=== PATIENT | female | born 1970 | race Caucasian/White ===

== ENCOUNTER 2017-04-19 05:33 | Inpatient (IN) | payer MEDICARE, MEDICAID ==
[2017-04-19] MEDS ORDERED: Celecoxib 200 MG Cap PO ONE (06:30)
[2017-04-19] MEDS ORDERED: Acetaminophen 500 MG Tab PO ONE (06:30)
[2017-04-19] MEDS ORDERED: Scopolamine 1.5 MG Transdermal Patch TOP SCH (06:30)
[2017-04-19] MEDS ORDERED: Gabapentin 300 MG Cap PO ONE (06:30)
[2017-04-19] MEDS ORDERED: Dextrose 5%-Lactated Ringers 1,000 ML IV SCH (06:30)
[2017-04-19] MEDS ORDERED: Propofol 200 MG/20 ML SDV ONE (06:48)
[2017-04-19] MEDS ORDERED: Dexamethasone 4 MG/ML SDV ONE (06:48)
[2017-04-19] MEDS ORDERED: Glycopyrrolate 0.2 MG/ML 5 ML MDV ONE (06:48)
[2017-04-19] MEDS ORDERED: Neostigmine Methylsulfate 1 MG/ML 5 ML Syringe ONE (06:48)
[2017-04-19] MEDS ORDERED: Succinylcholine 200 MG/10 ML MDV ONE (06:48)
[2017-04-19] MEDS ORDERED: Rocuronium 50 MG/5 ML Vial ONE (06:48)
[2017-04-19] MEDS ORDERED: Ondansetron 4 MG/2 ML SDV ONE (06:48)
[2017-04-19] MEDS ORDERED: cefOXitin 2 GM Vial ONE (06:55)
[2017-04-19] MEDS ORDERED: FLU Vacc QS 2017-18 (36mos UP)/PF 60 MCG/0.5 ML Syringe IM ONE (07:00)
[2017-04-19] MEDS ORDERED: Lidocaine 0.4%/D5W 2 GM/500 ML BAG IV SCH (08:00)
[2017-04-19] MEDS ORDERED: cefOXitin 2 GM in Premix Bag 1 BAG IV ONE (08:00)
[2017-04-19] MEDS ORDERED: Ropivacaine 48 ML, Dexamethasone 8 MG, EPINEPHrine 0.4 MG, Sodium Chloride 0.9% 29.6 ML NERVRT ONE ×4 (08:00)
[2017-04-19] MEDS ORDERED: Ketamine 500 MG/5 ML MDV IV ONE (08:00)
[2017-04-19] MEDS ORDERED: Lidocaine 2% 100 MG/5 ML Syringe IVPUSH ONE (08:00)
[2017-04-19] MEDS ORDERED: hydrOXYzine HCl 100 MG/2 ML SDV IM ONE (09:31)
[2017-04-19] MEDS ORDERED: fentaNYL 100 MCG/2 ML SDV IVPUSH ONE (09:32)
[2017-04-19] MEDS ORDERED: Labetalol 20 MG/4 ML Syringe IVPUSH PRN (11:00)
[2017-04-19] MEDS ORDERED: Metoclopramide 10 MG/2 ML SDV IVPUSH PRN (11:00)
[2017-04-19] MEDS ORDERED: diphenhydrAMINE 50 MG/ML SDV IVPUSH PRN (11:00)
[2017-04-19] MEDS ORDERED: hydrOXYzine HCl 100 MG/2 ML SDV IM PRN (11:00)
[2017-04-19] MEDS: cefOXitin 2 GM in Sodium Chloride 0.9% 50 ML IV SCH ×2 (12:53→17:41)
[2017-04-19] MEDS: Pantoprazole 40 MG Vial IVPUSH SCH (12:54)
[2017-04-19] MEDS: Gabapentin 300 MG Cap PO SCH ×2 (14:38→20:11)
[2017-04-19] MEDS: Acetaminophen 160 MG Tab,Disintegrating PO SCH ×2 (14:38→20:10)
[2017-04-19] MEDS: MVI, Adult with Vitamin K 10 ML, Thiamine 200 MG, Chromium/Copper/Mang/Selen/Zn 1 ML in... IV SCH ×4 (16:09)
[2017-04-19] MEDS: Ondansetron 4 MG/2 ML SDV IVPUSH PRN (16:09)
[2017-04-19] MEDS: Heparin Sodium 5,000 Units/ML Vial SUBCUT SCH (16:14)
[2017-04-19] MEDS: Dextrose 5%-Lactated Ringers 1,000 ML IV SCH (22:24)
[2017-04-20] MEDS: cefOXitin 2 GM in Sodium Chloride 0.9% 50 ML IV SCH (00:43)
[2017-04-20] MEDS: HYDROmorphone 1 MG/ML Syringe IVPUSH PRN ×2 (03:13→05:08)
[2017-04-20] MEDS: Acetaminophen 160 MG Tab,Disintegrating PO SCH ×4 (03:17→20:53)
[2017-04-20] MEDS: Dextrose 5%-Lactated Ringers 1,000 ML IV SCH (04:36)
[2017-04-20] MEDS: Heparin Sodium 5,000 Units/ML Vial SUBCUT SCH ×2 (05:01→17:28)
[2017-04-20] MEDS: Gabapentin 300 MG Cap PO SCH ×3 (08:28→20:56)
[2017-04-20] MEDS: Celecoxib 200 MG Cap PO SCH (08:28)
[2017-04-20] MEDS: ARIPiprazole 10 MG Tab PO SCH (08:29)
[2017-04-20] MEDS: SCOPOLAMINE PATCH CHECK TOP SCH (08:34)
[2017-04-20] MEDS ORDERED: Dextrose 5%-Lactated Ringers 1,000 ML IV SCH (09:00)
[2017-04-20] MEDS ORDERED: Amphetamine/Dextroamphetamine Salts 10 MG Cap.ER PO SCH (09:00)
[2017-04-20] MEDS ORDERED: HYDROmorphone 2 MG Tab PO PRN (09:00)
[2017-04-20] MEDS: busPIRone 5 MG Tab PO SCH ×3 (10:40→20:54)
[2017-04-20] MEDS: Pantoprazole 40 MG Vial IVPUSH SCH (12:05)
[2017-04-20] MEDS: Ondansetron 4 MG/2 ML SDV IVPUSH PRN (12:05)
--- NOTE | 2017-04-20 15:31 | PN ---
DATE OF SERVICE: 04/20/2017 The patient has been clinically stable status post sleeve gastrectomy and hiatal hernia repair yesterday. Upper GI x-ray looks good and oral intake has been satisfactory as well. We will restart her pertinent oral medications today, back down on the IV rate. She did require some IV Dilaudid for 2 doses during the night, and we will switch that to oral form as needed today. Otherwise, we will may be let her get in the shower and maximize activity and work with pulmonary toilet. She may be ready for discharge home tomorrow. Dario Rajput MD /[id number]
[2017-04-20] MEDS: MVI, Adult with Vitamin K 10 ML, Thiamine 200 MG, Chromium/Copper/Mang/Selen/Zn 1 ML in... IV SCH ×4 (17:31)
[2017-04-20] MEDS ORDERED: traZODone 50 MG Tab PO SCH (21:00)
[2017-04-21] MEDS: Acetaminophen 160 MG Tab,Disintegrating PO SCH ×2 (01:39→11:33)
[2017-04-21] MEDS: Heparin Sodium 5,000 Units/ML Vial SUBCUT SCH (05:31)
[2017-04-21] MEDS ORDERED: FLU Vacc QS 2017-18 (36mos UP)/PF 60 MCG/0.5 ML Syringe IM ONE (09:00)
[2017-04-21] MEDS ORDERED: Cyanocobalamin (Vitamin B12) 1,000 MCG/ML SDV IM ONE (09:00)
[2017-04-21] MEDS: Celecoxib 200 MG Cap PO SCH (11:32)
[2017-04-21] MEDS: ARIPiprazole 10 MG Tab PO SCH (11:33)
[2017-04-21] MEDS: busPIRone 5 MG Tab PO SCH (11:34)
[2017-04-21] MEDS: Gabapentin 300 MG Cap PO SCH (11:34)
[2017-04-21] MEDS: SCOPOLAMINE PATCH CHECK TOP SCH (11:34)
[2017-04-21] MEDS ORDERED: Magnesium Hydroxide 400 MG/5 ML Susp 30 ML Cup PO ONE (12:10)
--- NOTE | 2017-04-21 13:33 | DISCH ---
FINAL DIAGNOSES: 1. Morbid obesity. 2. Marked hepatomegaly. 3. Paraesophageal diaphragmatic hernia. ADDITIONAL DIAGNOSES: Attention deficit disorder and bipolar affective disorder. OPERATIVE PROCEDURE: Done on 04/19; laparoscopic sleeve gastrectomy along with liver biopsy and repair of paraesophageal diaphragmatic hernia with mesh. SUMMARY: This is a 47-year-old female presenting with longstanding morbid obesity and increasingly significant comorbidities. After preoperative evaluation and discussion, she wished to proceed with a laparoscopic sleeve gastrectomy. This was done on the date of admission along with a liver biopsy and repair of the paraesophageal diaphragmatic hernia with mesh. Postoperatively, she has had a smooth course, was having some epigastric discomfort as one would expect and is tolerating step-2 full liquid diet without difficulty as well as her medications. For the most part, she has been tolerating the regimen of Celebrex, gabapentin, and Tylenol for pain. She has had a little bit of breakthrough pain covered with some oral Dilaudid over the last 24 hours. The plan will be to discharge home. At this point, she will be following up with Selena Pickens at [facility] on 04/29/2017. She will be on her usual medications plus Celebrex and Tylenol and Dilaudid on a p.r.n. basis and instructed to remain on a full liquid or step-2 type diet for one month postoperatively.
--- NOTE | 2017-04-22 09:16 | CR ---
Limited upper GI The patient is status post Morgan-en-Y gastric bypass. There are left upper quadrant drains in place. T here is no extravasation of contrast. The gastric pouch empties readily into a nondilated Morgan limb. No complications are evident. Impression: 1. Status post Morgan-en-Y gastric bypass without evidence for complication.
--- NOTE | 2017-04-22 13:14 | OR ---
DATE OF PROCEDURE: 04/19/2017 PREOPERATIVE DIAGNOSIS: Morbid obesity. POSTOPERATIVE DIAGNOSES: 1. Morbid obesity. 2. Marked hepatomegaly. 3. Paraesophageal diaphragmatic hernia. OPERATIVE PROCEDURES: 1. Laparoscopic sleeve gastrectomy (22625). 2. Nick-Cut needle liver biopsy (24953). 3. Repair of paraesophageal diaphragmatic hernia with mesh (89631). ANESTHESIA: General. ASSISTANTS: Selena Pickens PA-C and OCTAVIANO Carlton3. INDICATION FOR PROCEDURE: This is a 47-year-old presenting with longstanding morbid obesity and increasingly significant comorbidities. After preoperative evaluation and discussion, she wished to proceed with a laparoscopic sleeve gastrectomy. Potential risks of the procedure including bleeding, infection, injury to underlying viscera, possible leaks from the staple line, as well as remote possibility of cardiopulmonary, septic, or hemorrhagic complications leading to were discussed, and the patient wishes to proceed. DETAILS OF PROCEDURE: The patient was taken to the operating room. After general endotracheal anesthesia was induced, she was placed in a lithotomy position and a Drummond catheter inserted, and orogastric tube was placed for anesthesia, which was subsequently removed after evacuation of the stomach. The abdomen was then prepped and draped. At 15 cm inferior and 5 cm left of xiphoid process, a transverse incision was made and peritoneal cavity entered under direct vision with an Optiview trocar inflated to 15 mmHg pressure with CO2. Following this, bilateral transversus plane blocks in the subcostal location were placed. The needle was visualized in the correct plane from the laparoscopic vantage point, and injections were unremarkable, using the standard solution. Following this, 5 additional trocars were placed across the upper and mid abdomen, and general exploration was undertaken. The patient noted to have a quite enlarged liver which was grossly fatty infiltrated. Nick-Cut needle biopsies from left lobe of the liver were obtained, and minimal bleeding from the biopsy sites was controlled with an electrocautery. As one elevated the liver, the patient was noted to have a fairly large paraesophageal diaphragmatic hernia. This contained some perigastric fat, along with the fundus of the stomach prolapsing in a plane anterior to the course of the esophagus. This was reduced and the peritoneum overlying incised and reflected downward. The esophagogastric junction and distal esophagus were then dissected away from the crura on each side, and the retrocrural window was established. The esophagus was then freed up of remaining attachments with the Kristin drain not being used for any pressure. The patient had an intraabdominal esophageal length of around 4 to 5 cm. Posterior repair of the crural defect was accomplished with 0 Ethibond sutures, reinforced with PTFE pledgets. The size of the defect was such that we felt this will be best reinforced with an absorbable mesh. A Phasix ST mesh was then cut such that it would cover the crural repair slightly over onto the crura on each side. This was positioned and fixed in position with some titanium tacking screws. At this point, attention was taken to takedown of the omentum. Beginning at the mid greater curvature, the omentum was then divided away using a harmonic scalpel. This continued up through the short gastric vessels, including the highest and posterior short gastric vessels. Some areolar tissue behind the medial fundus was then freed up such that we were able to proceed with a gastrectomy staple line without a redundant area of stomach proximally. The omentum division then continued distally down to 0.2 cm proximal to the pylorus, which had been marked with electrocautery at that point. The sleeve gastrectomy staple line was then mapped out, beginning 2 cm proximal to the pylorus and extending underneath the incisura angularis with care taken to avoid overtightening of the incisura angularis. The first 3 firings of the gastrectomy were then accomplished using the VERO black loads. Following this then, a #32 Erit[place]an tube was placed per Anesthesia. This was manipulated along the lesser curvature and pulled up snugly against the lesser curvature, after which the suction was applied. The remainder of the sleeve gastrectomy was accomplished with a series of reinforced black and purple loads and the specimen was then displaced off the side. The staple line appeared to be intact. Fibrin sealant was then placed with 8 mL being placed in the area of the upper aspect of the staple line. The omentum was then tacked up into that area with a 3-0 Vicryl stitch as well, and the remaining fibrin sealant was placed predominantly over the antral staple line and, to a lesser extent, over the midportion of the staple line. A leak test was accomplished with injection of air into the stomach, while the pyloric sphincter was being compressed, and the area irrigated with antibiotic-containing saline solution. Following this, a 10-Eritrean Rocael-Murray drain was then placed along the proximal end of the gastric staple line and into the splenic fossa from that point and the remaining trocars removed. Peritoneal cavity deflated. Incisions were closed with some 4-0 Vicryl skin stitch. Dressing was applied. The patient was taken to the recovery room in satisfactory condition. Physician kitchen assistant, Selena Pickens, played an essential role in assisting in this case, helping to position the patient, retract structures as needed, as well as suturing and cutting sutures when indicated. Her presence improved patient safety and decreased operative time. Dario Rajput MD /[id number]
== END 2017-04-21 12:15 | disposition home or self-care (01) | DRG 621 ==
LOC: JP.SDSSCHI 05:33 → JP.SDS 05:33 → EDSTATUS 07:30 → JP.2SS 09:10
PROVIDERS: ADMIT Surgery; ATTEND Surgery
PROC: 0DB64Z3 Excision of Stomach, Percutaneous Endoscopic Approach, Vertical (ICD-10-PCS; principal; 2017-04-19)
PROC: 0FB24ZX Excision of Left Lobe Liver, Percutaneous Endoscopic Approach, Diagnostic (ICD-10-PCS; 2017-04-19)
PROC: 0BUT4JZ Supplement Diaphragm with Synthetic Substitute, Percutaneous Endoscopic Approach (ICD-10-PCS; 2017-04-19)
PROC: 3E0T3BZ Introduction of Anesthetic Agent into Peripheral Nerves and Plexi, Percutaneous Approach (ICD-10-PCS; 2017-04-19)
DX: E66.01 Morbid (severe) obesity due to excess calories (principal); Z68.37 Body mass index [BMI] 37.0-37.9, adult; K76.0 Fatty (change of) liver, not elsewhere classified; R16.0 Hepatomegaly, not elsewhere classified; K44.9 Diaphragmatic hernia without obstruction or gangrene; F17.210 Nicotine dependence, cigarettes, uncomplicated; Z88.8 Allergy status to other drugs, medicaments and biological substances; F31.9 Bipolar disorder, unspecified; F41.9 Anxiety disorder, unspecified; Z23 Encounter for immunization
CPT/HCPCS: 36415; 74240; 74240-26; 82962; 83036; 86850; 86900; 86901; 88307; 88313; 88342; 90686; A9270-GY; C1781; C9113; G0008; J0171; J0330; J0694; J1100; J1170; J1644; J2001; J2405; J2704; J2710; J2795; J3010; J3410; J3411; J3420; J7030; J7042; J7050

== ENCOUNTER 2017-08-02 06:45 | Day surgery (SDC) | payer MEDICARE, MEDICAID ==
[2017-08-02] MEDS ORDERED: Propofol 200 MG/20 ML SDV ONE (07:07)
[2017-08-02] MEDS ORDERED: Midazolam 1 MG/ML 2 ML SDV ONE (07:07)
[2017-08-02] MEDS ORDERED: fentaNYL 100 MCG/2 ML SDV ONE (07:07)
[2017-08-02] MEDS ORDERED: Lactated Ringers 1,000 ML IV ONE (07:30)
[2017-08-02] MEDS ORDERED: Cyanocobalamin (Vitamin B12) 1,000 MCG/ML SDV IM ONE (07:45)
[2017-08-02] MEDS ORDERED: Glycopyrrolate 0.2 MG/ML 2 ML SDV IVPUSH ONE (08:00)
[2017-08-02] MEDS ORDERED: MVI, Adult with Vitamin K 10 ML, Thiamine 100 MG, Chromium/Copper/Mang/Selen/Zn 1 ML in... IV ONE ×4 (09:00)
--- NOTE | 2017-08-11 13:25 | OR ---
DATE OF PROCEDURE: 08/02/2017 PREOPERATIVE DIAGNOSIS: Dysphagia and epigastric pain status post sleeve gastrectomy. POSTOPERATIVE DIAGNOSES: 1. Status post sleeve gastrectomy associated with mild distal esophagitis. 2. Active antral gastritis. OPERATIVE PROCEDURE: Upper GI endoscopy with biopsies of antrum for CLOtest. ANESTHESIA: IV sedation. INDICATIONS FOR PROCEDURE: A 47-year-old status post a sleeve gastrectomy presenting with some dysphagia and epigastric pain along with some intermittent heartburn. She presently has been on omeprazole 40 mg a day. She was instructed to begin Carafate, but insurance has held up that and prior authorization is still pending. A sleeve gastrectomy was performed on 04/19/2017. The plan is to proceed with upper GI endoscopy with biopsies and/or dilation as indicated. Potential risks including bleeding and perforation were discussed, and the patient wishes to proceed. DETAILS OF PROCEDURE: The patient was taken to the operating room and placed in a left lateral decubitus position. IV sedation was administered after the upper GI endoscope was passed orally through the length of the esophagus, through the length of the stomach, treated by previous sleeve gastrectomy, from there through the pyloric channel and into the junction of the 3rd and 4th portions of the duodenum. Findings included normal hypopharynx, larynx, upper esophageal sphincter, and esophageal body. At the EG junction, there was some mild redness and edema of the mucosa. No stricturing was noted. The entire length of the sleeve gastrectomy was inspected and at no point were there any areas of significant narrowing. There was some retained bile and fairly active antral gastritis present without erosions or ulcers. The pyloric channel and visualized portions of the duodenum were unremarkable. At this point, biopsies were obtained from the antrum and sent for CLOtest for H. pylori. Minimal bleeding of the biopsy site was seen. The retained bile was then evacuated and the scope then removed and the procedure then concluded. At this point, I think we will pursue with the patient's prescription for the Carafate, and once that has begun, do that on a q.i.d. basis. If only solid pills are available per the insurance, we would like to dissolve those prior to ingestion, so as to get good coating of the esophagogastric junction. Otherwise, instructed to use Gaviscon liquid or chewable pills for the heartburn and nausea on a p.r.n. basis, and follow up with Selena Pickens will be in 2 weeks. Dario Rajput MD /[id number]
== END 2017-08-02 11:20 | disposition home or self-care (01) ==
LOC: JP.SDS 06:45
PROVIDERS: ATTEND Surgery
DX: R13.10 Dysphagia, unspecified (principal); K29.70 Gastritis, unspecified, without bleeding; E66.9 Obesity, unspecified; F31.9 Bipolar disorder, unspecified; F90.9 Attention-deficit hyperactivity disorder, unspecified type; Z88.5 Allergy status to narcotic agent; Z79.899 Other long term (current) drug therapy
CPT/HCPCS: 43239; 87081; J2250; J2704; J3010; J3411; J3420; J7120; J3490

== ENCOUNTER 2019-10-26 08:06 | Day surgery (SDC) | payer MEDICARE, MEDICAID ==
[~2019-10-26 08:06] MED LIST: Midazolam 1 MG/ML 2 ML SDV ONE; Propofol 200 MG/20 ML SDV ONE; fentaNYL 100 MCG/2 ML SDV ONE
[2019-10-26] MEDS ORDERED: Lactated Ringers 1,000 ML IV ONE (08:30)
[2019-10-26] MEDS ORDERED: Cyanocobalamin (Vitamin B12) 1,000 MCG/ML SDV IM ONE (08:30)
[2019-10-26] MEDS ORDERED: Glycopyrrolate 0.2 MG/ML 2 ML SDV IVPUSH ONE (09:15)
[2019-10-26] MEDS ORDERED: MVI, Adult with Vitamin K 10 ML, Thiamine 200 MG, Chromium/Copper/Mang/Selen/Zn 1 ML in... IV ONE ×4 (09:30)
--- NOTE | 2019-11-16 14:50 | OR ---
DATE OF PROCEDURE: 10/26/2019 SURGEON: Dario Rajput MD PREOPERATIVE DIAGNOSIS: Worsening gastroesophageal reflux disease, status post sleeve gastrectomy. POSTOPERATIVE DIAGNOSES: 1. Recurrent hiatal hernia with active gastroesophageal reflux disease, status post sleeve gastrectomy. 2. Large amount of gastric bile with diffuse bile gastritis. OPERATIVE PROCEDURE: Upper gastrointestinal endoscopy with antral biopsies for CLOtest. ANESTHESIA: IV sedation. INDICATION FOR PROCEDURE: The patient is status post a sleeve gastrectomy in April 2018, who presents now with worsening gastroesophageal reflux disease that has become refractory to medical management. The plan is to proceed with upper GI endoscopy for diagnostic purposes. Potential risks including bleeding and perforation were discussed, and the patient wishes to proceed. DETAILS OF PROCEDURE: The patient was taken to the operating room and placed in a left lateral decubitus position. IV sedation was administered, after which the upper GI endoscope was passed orally through the length of the esophagus into the remaining stomach and from there through the pyloric channel into the junction of the third and fourth portions of the duodenum. Findings included normal hypopharynx, larynx, upper esophageal sphincter, and esophageal body. At the EG junction, the patient was noted to have recurrent hiatal hernia measuring around 3 to 4 cm. This was not associated with any upward extension of the gastroesophageal junction mucosal line above the upper gastric folds. Within the remaining stomach, there was diffuse bile gastritis present and a fair bit amount of retained bile. Pyloric channel was nonstenotic and the visualized portions of the duodenum were unremarkable. At this point, biopsies were obtained from the antrum and sent for CLOtest for H pylori. Minimal bleeding from the biopsy site was seen and the procedure then concluded. As discussed with the patient preoperatively, the plan at this point will be to convert her to a Morgan-en-Y gastric bypass, which will concurrent repair of the hiatal hernia will also be undertaken. This will be scheduled for 10/29/2019. Dario Rajput MD /[id number]
== END 2019-10-26 12:15 | disposition home or self-care (01) ==
LOC: JP.SDS 08:06
PROVIDERS: ATTEND Surgery
DX: K29.70 Gastritis, unspecified, without bleeding (principal); K44.9 Diaphragmatic hernia without obstruction or gangrene; K21.9 Gastro-esophageal reflux disease without esophagitis; F31.9 Bipolar disorder, unspecified; F90.9 Attention-deficit hyperactivity disorder, unspecified type; Z98.84 Bariatric surgery status
CPT/HCPCS: 43239; 87081; J2250; J2704; J3010; J3411; J3420; J3490; J7120

== ENCOUNTER 2019-10-29 07:38 | Inpatient (IN) | payer MEDICARE, MEDICAID ==
[~2019-10-29 07:38] MED LIST changes: +Bupivacaine 0.5%/EPINEPHrine 1:200,000 50 ML MDV ONE; +Meropenem 500 MG SDV ONE; -Midazolam 1 MG/ML 2 ML SDV ONE; -Propofol 200 MG/20 ML SDV ONE; +cefOXitin 2 GM Vial ONE; -fentaNYL 100 MCG/2 ML SDV ONE
[2019-10-29] MEDS ORDERED: Scopolamine 1.5 MG Transdermal Patch TOP ONE (08:00)
[2019-10-29] MEDS ORDERED: Acetaminophen 500 MG Tab PO ONE (08:00)
[2019-10-29] MEDS ORDERED: Celecoxib 200 MG Cap PO ONE (08:00)
[2019-10-29] MEDS ORDERED: Albuterol/Ipratropium 3.0-0.5 MG/3 ML Neb Soln NEB ONE (08:36)
[2019-10-29] MEDS: Dextrose 5%-Lactated Ringers 1,000 ML IV SCH ×2 (08:47→14:04)
[2019-10-29] MEDS ORDERED: Magnesium Sulfate 2.5 GM in Sodium Chloride 0.9% 100 ML IV SCH (09:15)
[2019-10-29] MEDS ORDERED: Ketamine 50 MG in Sodium Chloride 0.9% 49.5 ML IV SCH (09:15)
[2019-10-29] MEDS ORDERED: Ketamine 500 MG/5 ML MDV IV SCH (09:15)
[2019-10-29] MEDS: cefOXitin 2 GM in Sodium Chloride 0.9% 50 ML IV ONE ×2 (09:59→14:50)
[2019-10-29] MEDS ORDERED: fentaNYL 250 MCG/5 ML SDV ONE ×2 (10:08→11:22)
[2019-10-29] MEDS ORDERED: Dexamethasone 4 MG/ML SDV ONE (10:08)
[2019-10-29] MEDS ORDERED: Glycopyrrolate 0.2 MG/ML 5 ML MDV ONE (10:08)
[2019-10-29] MEDS ORDERED: Propofol 200 MG/20 ML SDV ONE (10:08)
[2019-10-29] MEDS ORDERED: Rocuronium 50 MG/5 ML Vial ONE (10:08)
[2019-10-29] MEDS ORDERED: Succinylcholine 200 MG/10 ML MDV ONE (10:08)
[2019-10-29] MEDS ORDERED: Ondansetron 4 MG/2 ML SDV ONE (10:08)
[2019-10-29] MEDS ORDERED: Neostigmine Methylsulfate 1 MG/ML 5 ML Syringe ONE (10:08)
[2019-10-29] MEDS ORDERED: Lactated Ringers 1,000 ML ONE (10:10)
[2019-10-29] MEDS ORDERED: Labetalol 20 MG/4 ML Syringe ONE (11:55)
[2019-10-29] MEDS ORDERED: hydrOXYzine HCL 100 MG/2 ML SDV IM ONE (13:07)
[2019-10-29] MEDS ORDERED: Cyclobenzaprine 10 MG Tab PO PRN (14:27)
[2019-10-29] MEDS: Ondansetron 4 MG/2 ML SDV IVPUSH PRN ×2 (14:49→19:10)
[2019-10-29] MEDS: HYDROmorphone 0.5 MG/0.5 ML Syringe IVPUSH PRN ×2 (14:49→21:08)
[2019-10-29] MEDS ORDERED: Metoclopramide 10 MG/2 ML SDV IVPUSH PRN (15:00)
[2019-10-29] MEDS ORDERED: Glucagon,Human Recombinant 1 MG Vial IM PRN (15:00)
[2019-10-29] MEDS ORDERED: Labetalol 20 MG/4 ML Syringe IVPUSH PRN (15:00)
[2019-10-29] MEDS ORDERED: Calcium Gluconate 10% 1 GM/10 ML SDV IVPUSH PRN (15:00)
[2019-10-29] MEDS ORDERED: hydrOXYzine HCL 100 MG/2 ML SDV IM PRN (15:00)
[2019-10-29] MEDS ORDERED: Acetaminophen 500 MG Tab PO PRN (15:00)
[2019-10-29] MEDS ORDERED: HYDROmorphone 1 MG/ML Syringe IV PRN (15:00)
[2019-10-29] MEDS ORDERED: 50% Dextrose in Water 50 ML Syringe IVPUSH PRN (15:00)
[2019-10-29] MEDS ORDERED: diphenhydrAMINE 50 MG/ML SDV IVPUSH PRN (15:00)
[2019-10-29] MEDS ORDERED: Insulin Lispro 100 Unit/ML 3 ML KwikPen SUBCUT PRN (15:00)
[2019-10-29] MEDS: Acetaminophen 500 MG Tab PO SCH ×2 (15:56→22:36)
[2019-10-29] MEDS ORDERED: Pantoprazole 40 MG Vial IVPUSH SCH (16:00)
[2019-10-29] MEDS: cefOXitin 2 GM in Sodium Chloride 0.9% 50 ML IV SCH ×2 (16:03→21:18)
[2019-10-29] MEDS: Sodium Ferric Gluconate Cmplex 250 MG in Sodium Chloride 0.9% 100 ML IV SCH (16:46)
[2019-10-29] MEDS: oxyCODONE 5 MG Tab PO PRN (18:49)
[2019-10-29] MEDS: Heparin Sodium 5,000 Units/ML Vial SUBCUT SCH (19:45)
[2019-10-29] MEDS: Dextrose 5%-Lactated Ringers 1,000 ML with MVI, Adult with Vitamin K 10 ML, Thiamine 20... IV SCH ×4 (21:18)
[2019-10-29] MEDS: traZODone 50 MG Tab PO SCH (21:23)
[2019-10-30] MEDS: HYDROmorphone 0.5 MG/0.5 ML Syringe IVPUSH PRN ×2 (02:50→20:57)
[2019-10-30] MEDS: oxyCODONE 5 MG Tab PO PRN ×3 (02:52→17:54)
[2019-10-30] MEDS: Dextrose 5%-Lactated Ringers 1,000 ML with MVI, Adult with Vitamin K 10 ML, Thiamine 20... IV SCH ×8 (02:58→21:07)
[2019-10-30] MEDS: cefOXitin 2 GM in Sodium Chloride 0.9% 50 ML IV SCH ×4 (03:07→21:03)
[2019-10-30] MEDS ORDERED: Iopamidol 612 MG/ML 50 ML SDV PO ONE (03:16)
[2019-10-30] MEDS: Acetaminophen 500 MG Tab PO SCH ×4 (05:36→23:16)
[2019-10-30] MEDS ORDERED: Ondansetron 4 MG Tab.DIS PO PRN (07:33)
[2019-10-30] MEDS ORDERED: Calcium Carbonate 500 MG Tab.Chew PO PRN (07:34)
[2019-10-30] MEDS ORDERED: Dextrose 5%-Lactated Ringers 1,000 ML IV SCH (07:45)
[2019-10-30] MEDS ORDERED: Tamsulosin 0.4 MG Cap.ER PO ONE (09:00)
--- NOTE | 2019-10-30 09:12 | CR ---
Postop UGI Limited HISTORY: Postbariatric surgery FINDINGS: Patient swallowed water-soluble contrast. Upright views of the abdomen show no evidence of extravasation or obstruction. This appears to be a revision since April 2017. There is a surgical drain in the left upper quadrant IMPRESSION: Status post bariatric surgery/revision No extravasation or obstruction seen
[2019-10-30] MEDS ORDERED: Dextrose 5%-Lactated Ringers 1,000 ML with MVI, Adult with Vitamin K 10 ML, Thiamine 20... IV SCH ×4 (09:30)
[2019-10-30] MEDS: ARIPiprazole 10 MG Tab PO SCH (09:57)
[2019-10-30] MEDS: Heparin Sodium 5,000 Units/ML Vial SUBCUT SCH ×2 (09:57→21:01)
[2019-10-30] MEDS: Celecoxib 200 MG Cap PO SCH ×2 (09:58→21:01)
[2019-10-30] MEDS: Sertraline 50 MG Tab PO SCH (09:58)
[2019-10-30] MEDS: SCOPOLAMINE PATCH CHECK TOP SCH (10:01)
--- NOTE | 2019-10-30 11:27 | PN ---
DATE OF SERVICE: 10/30/2019 SUBJECTIVE: Vianca is postoperative day #1. Her upper GI was normal. Vital signs have been stable. Pain has been controlled. She has been up ambulating. Oral intake on a step 1 gastric bypass diet was 1140. Urine output 1300. She did have a straight cath last night because she was unable to void, and then later, she had to have the Drummond catheter replaced for inability to void. Reports some heartburn but thinks it is by taking her medications on an empty stomach. REVIEW OF SYSTEMS: Remainder of review of systems negative for any pertinent positives or negatives. OBJECTIVE: GENERAL: Vianca Mota is a 49-year-old female. VITAL SIGNS: TPR at 0727, 97.9, 69, 16. Blood pressure 95/58. HEENT: Negative. NECK: Supple. HEART: Regular rate and rhythm. LUNGS: Clear. ABDOMEN: Dressings dry and intact. Abdominal binder is on. ZAIRA drain drained 140 mL of a light red drainage. EXTREMITIES: Without peripheral edema. ASSESSMENT: Diagnostic laparotomy with lysis of adhesions: 1. Formation of laparoscopic Morgan-en-Y gastric bypass surgery. 2. Partial gastrectomy. 3. Repair of recurrent diaphragmatic hernia. 4. Needle liver biopsy. POSTOPERATIVE DIAGNOSES: 1. Recurrent hiatal hernia with gastroesophageal reflux disease refractory to medical management. 2. Status post laparoscopic sleeve gastrectomy. 3. Portion of stomach deserosalized after formation of gastric pouch. 4. Marked hepatomegaly. PLAN: 1. May shower. 2. Step 2 with no cereal gastric bypass diet. 3. Tums 1000 mg p.o. q.2 hours p.r.n. heartburn, may have at bedside. 4. Decrease IV to 100 mL per hour. 5. Zofran 4 mg p.o. q.4 hours p.r.n. nausea. 6. Flomax 0.4 mg now, 1 time. 7. Flomax 0.4 mg q.h.s. scheduled. 8. Decrease IV D5 LR with MultiVites to 100 mL per hour. 9. Discontinue cardiac monitoring. 10.Discontinue continuous pulse ox. 11.Communication order: 3 med cups per hour, 1 every 20 minutes, record at bedside. 12.We will evaluate p.r.n. or in a.m. Selena Pickens PA-C /[id number]
[2019-10-30] MEDS ORDERED: Sodium Chloride 0.9% 400 ML IV ONE (16:00)
[2019-10-30] MEDS: Sodium Ferric Gluconate Cmplex 250 MG in Sodium Chloride 0.9% 100 ML IV SCH (16:40)
[2019-10-30] MEDS: Pantoprazole 40 MG Delayed-Release Granules 1 Packet PO SCH (16:45)
[2019-10-30] MEDS: traZODone 50 MG Tab PO SCH (21:02)
[2019-10-30] MEDS: Tamsulosin 0.4 MG Cap.ER PO SCH (21:02)
[2019-10-31] MEDS: Dextrose 5%-Lactated Ringers 1,000 ML with MVI, Adult with Vitamin K 10 ML, Thiamine 20... IV SCH ×4 (00:18)
[2019-10-31] MEDS: Acetaminophen 500 MG Tab PO SCH ×3 (07:57→22:18)
[2019-10-31] MEDS ORDERED: Dextrose 5%-Lactated Ringers 1,000 ML with MVI, Adult with Vitamin K 10 ML, Thiamine 20... IV SCH ×4 (08:00)
[2019-10-31] MEDS: ARIPiprazole 10 MG Tab PO SCH (08:08)
[2019-10-31] MEDS: oxyCODONE 5 MG Tab PO PRN ×3 (08:08→22:51)
[2019-10-31] MEDS: Heparin Sodium 5,000 Units/ML Vial SUBCUT SCH ×2 (08:08→19:48)
[2019-10-31] MEDS: Celecoxib 200 MG Cap PO SCH ×2 (08:08→20:28)
[2019-10-31] MEDS: Sertraline 50 MG Tab PO SCH (08:09)
[2019-10-31] MEDS: SCOPOLAMINE PATCH CHECK TOP SCH (08:11)
[2019-10-31] MEDS ORDERED: Cyanocobalamin (Vitamin B12) 1,000 MCG/ML SDV IM ONE (09:00)
[2019-10-31] MEDS: Pantoprazole 40 MG Delayed-Release Granules 1 Packet PO SCH (15:34)
[2019-10-31] MEDS: Tamsulosin 0.4 MG Cap.ER PO SCH (20:28)
[2019-10-31] MEDS: traZODone 50 MG Tab PO SCH (20:28)
--- NOTE | 2019-11-01 09:20 | OR ---
DATE OF PROCEDURE: 10/29/2019 SURGEON: Dario Rajput MD PREOPERATIVE DIAGNOSIS: Recurrent hiatal hernia with associated gastroesophageal reflux disease, refractory to medical management, status post sleeve gastrectomy. POSTOPERATIVE DIAGNOSIS: 1. Recurrent hiatal hernia with associated gastroesophageal reflux disease, refractory to medical management, status post sleeve gastrectomy. 2. Portion of stomach devascularized, status post formation of gastric pouch. 3. Marked hepatomegaly. OPERATIVE PROCEDURES: Diagnostic laparoscopy with lysis of adhesions: 1. Formation of laparoscopic Morgan-en-Y gastric bypass along with gastroenterostomy (24621). 2. Partial gastrectomy (77248). 3. Repair of recurrent paraesophageal diaphragmatic hernia (05820). 4. Nick-Cut needle liver biopsy (66526). ANESTHESIA: General. FILTERS ASSEMBLER: Selena Pickens PA-C INDICATIONS FOR PROCEDURE: This is a 49-year-old female status post laparoscopic sleeve gastrectomy presenting with gastroesophageal reflux disease which has been refractory to medical management and recent upper endoscopy associated with some recurrence of her hiatal hernia. Plan is to proceed with conversion to a Morgan-en-Y gastric bypass status with repair of the hiatal hernia. Potential risks of procedure including bleeding, infection, leaks from various GI tract closures, problems with bowel obstruction over time as well as the possibility of cardiopulmonary, septic, or hemorrhagic complications leading to were all discussed, and the patient wishes to proceed. DETAILS OF PROCEDURE: The patient was taken to the operating room, placed in a supine position. After general endotracheal anesthesia was induced, she was converted to a lithotomy position and the abdomen prepped and draped. At 15 cm inferior and 5 cm left of the xiphoid process transverse incision was made, the peritoneal cavity entered under direct vision with an Optiview trocar, inflated to 15 mmHg pressure with CO2. Laparoscope was then reinserted. No underlying trocar insertion site injuries were seen. Following this, 5 additional trocars were placed across the upper and mid abdomen, general exploration was undertaken. The patient was noted to have marked hepatomegaly with liver being grossly fatty infiltrated Nick-Cut needle biopsy was obtained from left lobe of the liver. Minimal bleeding from the biopsy sites was controlled with electrocautery. Bilateral subcostal transversus abdominis plane blocks were then placed as well. The omentum was then divided in the midline up to the level of the transverse colon. This allowed identification of the small bowel to the ligament of Treitz. Small bowel was then traced out 150 cm distal to that point, was divided transversely with VERO stapler. The small bowel was then traced out additional 200 cm where the [id number] enteroenterostomy was accomplished with internal firing of the Endo-VERO 60 mm stapler, common opening was then closed transversely with the same stapler, then the angles of anastomosis and mesenteric defect approximated with 0 Ethibond stitch along with fibrin sealant. The divided end of Morgan limb was then from the mesentery for a few centimeters, which allowed an antecolic position of the Morgan limb up to the level of the gastroesophageal junction without tension. The liver was then retracted anteriorly. There were some adhesions between the previous sleeve gastrectomy and liver which were taken down with electrocautery. These were eventually freed up such that the patient's recurrent paraesophageal hernia was identified. This was in left anterolateral location related to the underlying esophagus. Some omentum within the hernia was then divided with a harmonic scalpel, and after the division of the peritoneum overlying this area, hernia was repaired anteriorly with some 0 Ethibond sutures reinforced with PTFE pledgets. The gastrointestinal balloon catheter was then inflated to 15 mL and pulled up snugly against the EG junction. The gastric wall over the apex balloon was then marked with electrocautery and balloon catheter deflated and pulled up from the esophagus. The lesser curvature of the omentum was then divided allowing dissection behind the stomach at that level and the pouch formation was then created at the level of the cauterized bethel, roughly 2 fingerbreadths below the esophagogastric junction with a VERO black load, followed by a single firing of the VERO purple load. Upon completion of the pouch formation, the proximal end of stomach appeared to be satisfactory. There was duskiness of the more distal divided stomach consistent with some ischemia and this was excised now with additional VERO black load firing. The remainder of the more distal stomach at that point appeared to be satisfactory and the gastrectomy specimen was sent for pathologic review. The anvil of a 25 mm EEA stapler was attached to [place] sump type tube, the latter was brought down through the mouth and taken out through a small opening in the gastric pouch, allowing the anvil likewise to be pulled down to within the gastric pouch. The divided end of the Morgan limb was then opened. The main body of EEA stapler was passed several centimeters into the lumen of small bowel, brought up the anvil, united with it, thus creating the gastrojejunostomy. Upon removal of the stapler, double donuts of mucosa were noted within it. The small bowel was closed off with a vascular staple line. Gastrojejunostomy was reinforced with some 3-0 Vicryl seromuscular stitch along with fibrin sealant. Leak test was accomplished with injection of 120 mL of air into the gastric pouch while it was submerged with cefoxitin-containing saline solution. No leaks were identified. Single Rocael-Murray drain was then taken through the left lateral trocar site and positioned adjacent to the gastric cardia and from there up into the splenic fossa. The trocars were then removed. The peritoneal cavity deflated. Incisions were closed with some 4-0 Vicryl skin stitch and dressing applied. The patient was taken to the recovery room in satisfactory condition. Physician case management assistant, Selena Pickens, played an essential role in assisting in this case, helping to position the patient, retract structures as needed, as well as suturing and cutting sutures when indicated. Her presence improved the patient's safety and decreased operative time. Dario Rajput MD /[id number]
--- NOTE | 2019-11-01 12:20 | PN ---
DATE OF SERVICE: 10/31/2019 The patient has been afebrile with stable vital signs. We will switch over to exclusively oral pain medication today. The blood sugars have all been running quite good in the 130 range and we will discontinue the Accu-Cheks. She will likely be ready for discharge home tomorrow. Dario Rajput MD /[id number]
--- NOTE | 2019-11-01 13:02 | DISCH ---
FINAL DIAGNOSES: 1. Recurrent hiatal hernia with gastroesophageal reflux disease refractory to medical management status post laparoscopic sleeve gastrectomy. 2. Portion of stomach devascularized, status post formation of gastric pouch. 3. Marked hepatomegaly. SECONDARY DIAGNOSES: 1. Attention deficit hyperactivity disorder. 2. Bipolar disease. 3. Depression and anxiety. 4. Back pain. 5. Iron deficiency status. 6. Low vitamin levels. OPERATIVE PROCEDURES: Done on 10/28: Diagnostic laparoscopy with lysis of adhesions and, 1. Formation of laparoscopic Morgan-en-Y gastric bypass with long limb gastroenterostomy. 2. Partial gastrectomy. 3. Repair of paraesophageal diaphragmatic hernia. 4. Nick-Cut needle liver biopsy. SUMMARY: This is a 49-year-old with the development of severe gastroesophageal reflux disease status post previous sleeve gastrectomy. This has been refractory to medical management. Upper endoscopy showed some recurrence of the paraesophageal hernia which had been repaired at the time of original sleeve gastrectomy. Given the refractoriness to medical management, the standard treatment is to convert to a gastric bypass. Morgan-en-Y gastric bypass was completed on the date of admission. She was also noted to have a significant hepatomegaly, liver biopsies were obtained along with repair of paraesophageal diaphragmatic hernia. There was a small area of ischemia of the stomach distal to the pouch formation which was excised as well. Postoperatively, the patient has done well. She tolerates Step-2 diet, will be discharged home on that diet until her first appointment, which will be with Dr. Selena Pickens in [facility] on 11/09/2019. She will be continuing her current medications except the Protonix will be held, her lithium will be converted over to immediate release form, going from Lithobid 450 mg b.i.d. to lithium immediate release 300 mg t.i.d. The longer acting medications in this case may as a tablet get into the colon before releasing all the intended medications, so immediate release in this case would be likely to more stable lithium levels. In addition, instructed to take Tylenol 1 g q.6 hours p.r.n. pain and given a prescription for oxycodone 5 mg p.o. q.4 hours p.r.n. pain #30.
== END 2019-11-01 10:30 | disposition home or self-care (01) | DRG 327 ==
LOC: JP.SDSSCHI 07:38 → JP.SDS 07:38 → EDSTATUS 10:15 → UNDOADMIN 14:00 → JP.MS 14:00
PROVIDERS: ADMIT Surgery; ATTEND Surgery
PROC: 0D164ZA Bypass Stomach to Jejunum, Percutaneous Endoscopic Approach (ICD-10-PCS; principal; 2019-10-29)
PROC: 0BQT4ZZ Repair Diaphragm, Percutaneous Endoscopic Approach (ICD-10-PCS; 2019-10-29)
PROC: 0FB24ZX Excision of Left Lobe Liver, Percutaneous Endoscopic Approach, Diagnostic (ICD-10-PCS; 2019-10-29)
PROC: 0DB64ZZ Excision of Stomach, Percutaneous Endoscopic Approach (ICD-10-PCS; 2019-10-29)
DX: K21.9 Gastro-esophageal reflux disease without esophagitis (principal); K91.2 Postsurgical malabsorption, not elsewhere classified; K44.9 Diaphragmatic hernia without obstruction or gangrene; Z98.84 Bariatric surgery status; R16.0 Hepatomegaly, not elsewhere classified; F90.9 Attention-deficit hyperactivity disorder, unspecified type; F31.9 Bipolar disorder, unspecified; F41.9 Anxiety disorder, unspecified; M54.9 Dorsalgia, unspecified; E61.1 Iron deficiency; E55.9 Vitamin D deficiency, unspecified; E53.9 Vitamin B deficiency, unspecified; E53.8 Deficiency of other specified B group vitamins; E50.9 Vitamin A deficiency, unspecified; Z79.899 Other long term (current) drug therapy; Z90.49 Acquired absence of other specified parts of digestive tract; Z90.710 Acquired absence of both cervix and uterus; Z68.34 Body mass index [BMI] 34.0-34.9, adult
CPT/HCPCS: 36415; 51702; 74240; 74240-26; 82962; 86850; 86900; 86901; 88305; 88307; 88313; 93005; 93010; 94640; A9270-GY; C9113; J0171; J0330; J0694; J1100; J1170; J1644; J1815; J2185; J2405; J2704; J2710; J2795; J2916; J3010; J3410; J3411; J3420; J3475; J3490; J7030; J7040; J7050; J7120; J7121; J7620-GY; Q9967